=== PATIENT | female | born 1990 | race Two or more races ===

== ENCOUNTER 2017-02-20 19:21 | Inpatient (IN) | payer SELFPAY ==
[~2017-02-20] VITALS: Ht 165.1 cm; Wt 61.7 kg
--- NOTE | 2017-02-20 19:25 | NUR ---
Pt bb ra; took pill rx by gynocologist a week ago, today became weak, dizzy near syncope. Placed on monitor. vss. Awaiting md order.
--- NOTE | 2017-02-20 19:45 | NUR ---
at bedside for eval.
[2017-02-20] MEDS ORDERED: IV NS 0.9% 1,000 ML ONE ×2 (19:53→21:21)
[2017-02-20] MEDS ORDERED: IV SET PRIMARY PUMP SET 1 EA INFUS.SET MC ONE (19:53)
[2017-02-20] MEDS ORDERED: IV NS 0.9% 1,000 ML BAG IV ONE ×2 (20:00→22:00)
[2017-02-20] MEDS ORDERED: ONDANSETRON HCL/PF 4 MG/2 ML VIAL IVP ONE (20:00)
[2017-02-20] MEDS ORDERED: MORPHINE SULFATE INJ 2 MG/ML DISP.SYRIN IV ONE (20:00)
--- NOTE | 2017-02-20 20:00 | NUR ---
RAC #18 iv access. blood sample collected sent to lab.
[2017-02-20] MEDS ORDERED: ONDANSETRON HCL/PF 4 MG/2 ML VIAL ONE (20:21)
[2017-02-20] MEDS ORDERED: MORPHINE SULFATE INJ 2 MG/ML DISP.SYRIN ONE ×2 (20:21→21:14)
[2017-02-20 20:28] LABS: BASOPHILS % (AUTO) 0.4 % (0.0-2.0); EOSINOPHILS # (AUTO) 0.1 /CMM (0.0-0.7); EOSINOPHILS % (AUTO) 0.9 % (0.0-6.0); HEMATOCRIT 31 % (33-45); HEMOGLOBIN 10.3 g/dL (11.5-14.8); LYMPHOCYTES % (AUTO) 9.8 % (20.0-44.0); MEAN CORPUSCULAR HEMOGLOBIN 28 PG (26.0-33.0); MEAN CORPUSCULAR HGB CONC 34 g/dl (31.0-36.0); MEAN CORPUSCULAR VOLUME 82 fL (82-100); MONOCYTES # (AUTO) 0.5 /CMM (0.1-1.30); MONOCYTES % (AUTO) 4.3 % (2.0-12.0); NEUTROPHILS # (AUTO) 8.8 /CMM (1.8-8.9); NEUTROPHILS % (AUTO) 84.6 % (43.0-81.0); PLATELET COUNT (AUTO) 248 /CMM (150-450); RDW COEFFICIENT OF VARIATION 12.7 (11.5-15.0); RED BLOOD CELL COUNT(AUTO) 3.72 MIL/uL (4.0-5.2); WHITE BLOOD COUNT (AUTO) 10.4 K/uL (4.3-11.0)
[2017-02-20 20:41] LABS: CALCIUM, SERUM 8.7 mg/dL (8.5-10.1); CREATININE 0.6 mg/dL (0.6-1.3); POTASSIUM 3.8 mmol/L (3.5-5.1)
[2017-02-20 20:51] LABS: INR 1.04 (0.87-1.13); PROTHROMBIN TIME 11.2 SECS (9.5-12.7)
--- NOTE | 2017-02-20 21:14 | NUR ---
MISCARRIAGE END PRODUCT SENT TO LAB
--- NOTE | 2017-02-20 21:25 | NUR ---
'S NUMBER IS [phone]
--- NOTE | 2017-02-20 21:25 | NUR ---
CALLED , LEFT MESSAGE ON VOICEMAIL
[2017-02-20] MEDS ORDERED: MORPHINE SULFATE INJ 10 MG/ML DISP.SYRIN IV ONE (21:30)
[2017-02-20] MEDS ORDERED: BLOOD IV SET 1 EA INFUS.SET MC ONE (21:36)
[2017-02-20] MEDS ORDERED: IV NS 0.9% 250 ML IV ONE (21:36)
--- NOTE | 2017-02-20 21:47 | NUR ---
CALLED , TRANSFERRED CALL TO JASMYNE BRUNNER)
[2017-02-20] MEDS ORDERED: OXYTOCIN 10 UNIT/ML ML ONE (21:57)
[2017-02-20] MEDS ORDERED: OXYTOCIN 10 UNIT/ML ML IV ONE (22:00)
--- NOTE | 2017-02-20 22:01 | NUR ---
CALLED , TRANSFERRED CALL TO
--- NOTE | 2017-02-20 22:15 | NUR ---
EMRGENCY BLOOD TRANSFUSION GIVEN. VERIFIED WITH ALEXIS GANN. WILL MONITOR FOR REACTION.
[2017-02-20] MEDS ORDERED: ACETAMINOPHEN ES 500 MG TABLET ONE (22:28)
--- NOTE | 2017-02-20 23:01 | NUR ---
BLOOD TRANSFUSION COMPLETED . NO ADVERSE REACTION. PT ABLE TO TOLERATE. BP 126/66. NO FEVER
--- NOTE | 2017-02-20 23:03 | NUR ---
CALLED NURSING SUP. FOR KELSEA BED
--- NOTE | 2017-02-20 23:03 | NUR ---
[facility] PAGED, DR. WILLIAM HURLEY PATTERN DRUM MAKER
[2017-02-20] MEDS ORDERED: IV NS 0.9% 1,000 ML IV PRN (23:12)
--- NOTE | 2017-02-20 23:18 | NUR ---
GAVE REPORT TO MARIO GANN. KELSEA GOING TO BED 117-2
--- NOTE | 2017-02-20 23:18 | NUR ---
RN NOTE RECEIVED REPORT FROM GITA FIELDS RN FOR CONTINUITY OF CARE. PT IS A/O X 4 AND ABLE TO MAKE NEEDS KNOWN. PT IS ON RA AND TOLERATING WELL WITH O2 SAT @ 98%. PT NOT C/O ANY SOB, DIFFICULTY BREATHING OR PAIN AT THIS TIME. PT HAS FAMILY AT BEDSIDE. PT HAS IV IN RAC 18 G THAT IS CLEAN DRY INTACT AND PATENT WITH SALINE FLUSH. IV IS SALINE LOCKED. BED IN LOW LOCK POSITION WITH RIALS UP X 2. CALL LIGHT WITHIN REACH AND ALL SAFETY MEASURES ENSURED AND CARRIED OUT. WILL CONTINUE TO MONITOR PT.
[2017-02-20 23:25] VITALS: BP 100/62
[2017-02-20] MEDS ORDERED: HYDROCODONE/APAP 5/325MG 1 EACH TABLET PO PRN (23:30)
[2017-02-20] MEDS ORDERED: MORPHINE SULFATE INJ 2 MG/ML DISP.SYRIN IV PRN (23:30)
[2017-02-20] MEDS ORDERED: ZOLPIDEM TARTRATE 5 MG TABLET PO PRN (23:30)
[2017-02-20] MEDS ORDERED: Z GUARD REMEDY 2 OZ OINT TP PRN (23:30)
[2017-02-20] MEDS ORDERED: MAGNESIUM HYDROXIDE 30 ML UDC PO PRN (23:30)
[2017-02-20] MEDS ORDERED: ACETAMINOPHEN 325 MG TABLET PO PRN (23:30)
[2017-02-20] MEDS ORDERED: MAG HYDROX/AL HYDROX/SIMETH 30 ML UDC PO PRN (23:30)
[2017-02-20] MEDS ORDERED: ONDANSETRON HCL/PF 4 MG/2 ML VIAL IVP PRN (23:30)
[2017-02-21] MEDS ORDERED: MISOPROSTOL 100 MCG TABLET PO SCH (00:30)
[2017-02-21] MEDS ORDERED: MISOPROSTOL 100 MCG TABLET ONE ×2 (00:43→00:46)
[2017-02-21] MEDS ORDERED: IV SET PRIMARY PUMP SET 1 EA INFUS.SET MC ONE (00:46)
[2017-02-21 01:12] LABS: HEMOGLOBIN 8.1 g/dL (11.5-14.8)
[2017-02-21 04:00] VITALS: BP 93/55
--- NOTE | 2017-02-21 06:51 | NUR ---
RN CLOSING NOTE PT REMAINS IN NO ACUTE DISTRESS. PT DID NOT HAVE ANY SIGNIFICANT CHANGE IN CONDITION DURING SHIFT. ALL NEEDS MET ALL ORDERS CARRIED OUT. WILL ENDORSE TO AM RN FOR CONTINUITY OF CARE.
[2017-02-21 07:19] LABS: BASOPHILS % (AUTO) 0.5 % (0.0-2.0); EOSINOPHILS # (AUTO) 0.1 /CMM (0.0-0.7); EOSINOPHILS % (AUTO) 2.1 % (0.0-6.0); HEMATOCRIT 23 % (33-45); HEMOGLOBIN 7.8 g/dL (11.5-14.8); LYMPHOCYTES # (AUTO) 1.3 /CMM (0.8-4.8); LYMPHOCYTES % (AUTO) 23.7 % (20.0-44.0); MEAN CORPUSCULAR HEMOGLOBIN 28 PG (26.0-33.0); MEAN CORPUSCULAR HGB CONC 34 g/dl (31.0-36.0); MEAN CORPUSCULAR VOLUME 82 fL (82-100); MONOCYTES # (AUTO) 0.4 /CMM (0.1-1.30); MONOCYTES % (AUTO) 6.7 % (2.0-12.0); NEUTROPHILS # (AUTO) 3.6 /CMM (1.8-8.9); PLATELET COUNT (AUTO) 219 /CMM (150-450); RDW COEFFICIENT OF VARIATION 13.2 (11.5-15.0); RED BLOOD CELL COUNT(AUTO) 2.79 MIL/uL (4.0-5.2); WHITE BLOOD COUNT (AUTO) 5.3 K/uL (4.3-11.0)
[2017-02-21 07:52] LABS: ALBUMIN 2.4 g/dL (3.4-5.0); BILIRUBIN,TOTAL 0.2 mg/dL (0.2-1.0); CALCIUM, SERUM 7.5 mg/dL (8.5-10.1); CREATININE 0.4 mg/dL (0.6-1.3); MAGNESIUM 1.8 mg/dL (1.8-2.4); PHOSPHORUS 3.7 mg/dL (2.5-4.9); TOTAL PROTEIN, SERUM 4.8 g/dL (6.4-8.2)
[2017-02-21 08:00] VITALS: BP 124/67
--- NOTE | 2017-02-21 08:00 | NUR ---
TD/RN AM SHIFT INITIAL NOTES RECEIVED PT AWAKE IN BED WITH PT'S AT BEDSIDE. ON ROOM AIR SATURATING @ 100%, LUNG SOUNDS CLEAR, ON TELE WITH SINUS RHYTHM, HR 68. WITH ON GOING IV INFUSION OF NS @ 125CC/HR, IV SITE PATENT WITH NO S/S OF INFECTION. PT ON NPO STATUS EXCEPTS MEDS. AWAITING FOR DR. ZAZUETA FOR CONSULT. NOTED WITH BLEEDING WITH CLOTS WHEN PT URINATED. PT IS COMFORTABLE AT THIS TIME. CL WITHIN REACHED AND SAFETY MAINTAINED. ON GOING MONITORING.
--- NOTE | 2017-02-21 08:10 | NUR ---
TD/RN FOLLOW UP- DR. ZAZUETA PLACED A CALL AND LEFT MESSAGE TO DR. ZAZUETA TO FOLLOW-UP WITH CONSULT. AWAITING FOR RETURN CALL.
[2017-02-21] MEDS ORDERED: PANTOPRAZOLE 40 MG VIAL IV SCH (09:00)
--- NOTE | 2017-02-21 09:02 | NUR ---
MS1/RN AMA PER PT, SHE SPOKE TO HER OWN OBGYN, DR. LEMUS ADVISED HER TO GO AMA AND SEE HER OWN DOCTOR IN THE OFFICE. DR. PAK NOTIFIED. RISK AND BENEFITS EXPLAINED, PT VERBALIZED UNDERSTANDING. AWAITING TO HEAR FROM DR. PAK.
--- NOTE | 2017-02-21 09:35 | NUR ---
MS1/BOOK EDITOR AMA DISCHARGE DOCUMENTS GIVEN TO PT, PERSONAL BELONGINGS RETURNED, INVENTORY LOG SIGNED, OFF PT VERBALIZED UNDERSTANDING OF RISK AND BENEFITS OF DISCHARGING AMA. IV SITE REMOVED, PRESSURE DRESSING APPLIED, NO S/S OF INFECTION. ID BAND REMOVED. PT LEFT AMBULATORY WITH STEADY GAIT ACCOMPANIED BY PT'S SISTER AND FRIEND TO THE LOBBY TO A PRIVATE CARE.
== END 2017-02-21 09:32 | disposition left against medical advice (07) | DRG 770 ==
LOC: ER 19:23 → TELE-TD 23:31
PROVIDERS: ADMIT Family Medicine; ATTEND Family Medicine
PROC: 10D17ZZ Extraction of Products of Conception, Retained, Via Natural or Artificial Opening (ICD-10-PCS; principal; 2017-02-20)
PROC: 30233N1 Transfusion of Nonautologous Red Blood Cells into Peripheral Vein, Percutaneous Approach (ICD-10-PCS; principal; 2017-02-20)
DX: O03.1 Delayed or excessive hemorrhage following incomplete spontaneous abortion (principal); D62 Acute posthemorrhagic anemia; Z3A.10 10 weeks gestation of pregnancy; R55 Syncope and collapse
CPT/HCPCS: 36415; 76856-TC; 80048-TC; 80053-TC; 82962-TC; 83735-TC; 84100-TC; 84702-TC; 85025-TC; 85027-TC; 85730-TC; 86921-TC; 87081-TC; 88305-TC; A4606; J2270; J2405; J2590; J7030; J7050; P9016-BL; Z7610